=== PATIENT | female | born 1985 | race Two or more races ===

== ENCOUNTER → 2024-12-25 | Emergency (ER) | payer BC ==
[~2024-12-25] VITALS: Ht 167.6 cm; Wt 68.0 kg
[~2024-12-25] MED LIST: ADVIL LIQUI-GE200 MG PO
== END | disposition home or self-care (01) ==
LOC: ER 18:26
DX: S62.339A Displaced fracture of neck of unspecified metacarpal bone, initial encounter for closed fracture (principal); W19.XXXA Unspecified fall, initial encounter; Y93.89 Activity, other specified; Y92.831 Amusement park as the place of occurrence of the external cause; Y99.8 Other external cause status; Z88.8 Allergy status to other drugs, medicaments and biological substances